=== PATIENT | female | born 1985 | race American Indian/Alaskan Native ===

== ENCOUNTER 2019-07-24 09:27 | Outpatient (CLI) | payer OTHER ==
--- NOTE | 2019-07-24 10:48 | Magnetic Resonance Report ---
MRI LUMBAR SPINE 07/24/2019 INDICATION / CLINICAL INFORMATION: LOW BACK PAIN LUMBAR RADICULOPATHY. COMPARISON: None available. FINDINGS: GENERAL OBSERVATIONS: Unenhanced MR images of the lumbar spine demonstrate no evidence of acute abnor mality. Lumbar spine is relatively hyperlordotic. Vertebral body alignment is normal. Disc profiles are normal at all levels. There is no evidence of disc herniation or nerve root cee jolynn. Disc heights are normal at all levels. Neural foramina are unremarkable. [id number] ANALYSIS: BONE MARROW: Normal. SPINAL CORD/CAUDA EQUINA: Normal. PARASPINAL SOFT TISSUES: No significant abnormality. IMPRESSION: Essentially negative unenhanced MRI of the lumbar spine. Signer Name: Negro Cornelius MD Signed: 07/24/2019 10:44 AM Workstation Name: [email or web address]
== END 2019-07-24 09:28 | disposition home or self-care (01) ==
LOC: MRI 09:27
PROVIDERS: ATTEND Family Medicine
DX: M54.16 Radiculopathy, lumbar region (principal)
CPT/HCPCS: 72148